=== PATIENT | female | born 1960 | race African-American/Black ===

== ENCOUNTER 2024-09-17 07:56 | Inpatient (IN) | payer OTHER ==
[~2024-09-17] VITALS: Ht 165.1 cm; Wt 95.7 kg
--- NOTE | 2024-09-17 08:17 | ED.PDOC ---
History of Present Illness HPI Comments 54F presents to the ER w/ prior MHx of HTN, Kidney Stones, DM, HLD,Asthma;SHx of Cholecystectomy, gastric Bypass and the c/c of ABD pain. EMS report that the pt had LUQ/Epigastric pain which radiated to antonia back for the past 2 days, worsening the pain making it on the scale of a 20/10 before EMS arrived. Pt states that she had Waba [place] last night before the pain worsened, w/ fever, and N/V. Pt was given 4 Zofran PO, and given Fentanyl IM all en route, w/ the current pain being a 5/10. Social Hx of Occasional alcohol use, but denies tobacco and substance use. Denies chills, /D, SOB, CP. No other associated symptoms, modifiers, recent injuries or sick contacts present at this time. Time Seen by MD: 08:00 Reviewed Notes: Nurses Notes, Screen Cutter And Trimmer Notes, Medications, Allergies Allergies: Coded Allergies: Penicillins (Verified Allergy, Unknown, 09/17/24) Information Source: Patient, Emergency Med Personnel Mode of Arrival: EMS Severity: Moderate Timing: Days Duration: Since onset, Days Prehospital treatment: Pain Meds (Fent/ 4 Zofran) Past Medical History PAST MEDICAL HISTORY: Asthma, DM, HTN, Kidney Stones Past Medical History (Other): HLD Surgical History: Cholecystectomy Surgical History (Other): Gastric Bypass BLOCKER METAL BASE History: No Pertinent BLOCKER METAL BASE History Family History Family History: Reviewed,noncontributory to illness, Unknown Social History Smoker: Non-Smoker Alcohol: Occasionally Drugs: Denies Drug Use Lives In: Home Constitutional: reports: fever; denies: chills, diaphoresis, fatigue, malaise, sweats, weakness, others EENTM: denies: blurred vision, double vision, ear bleeding, ear discharge, ear drainage, ear pain, ear ringing, eye pain, eye redness, hearing loss, mouth krista n, mouth swelling, nasal discharge, nose bleeding, nose congestion, nose pain, photophobia, tearing, throat pain, throat swelling, voice changes, others Respiratory: denies: cough, hemoptysis, orthopnea, SOB at rest, shortness of breath, SOB with excertion, stridor, wheezing, others Cardiovascular: denies: chest pain, dizzy spells, diaphoresis, Dyspnea on exertion, edema, irregular heart beat, left arm pain, lightheadedness, palpitations, PND, syncope, others Gastrointestinal: reports: abdominal pain, nausea, vomiting; denies: abdomen distended, blood streaked bowels, constipated, diarrhea, dysphagia, difficulty swallowing, hematemesis, melena, poor appetite, poor fluid intake, rectal bleeding, rectal pain, others Genitourinary: denies: abnormal vagina bleeding, burning, dyspareunia, dysuria, flank pain, frequency, hematuria, incontinence, pain, , vagina discharge, urgency, others Neurological: denies: dizziness, fainting, headache, left sided numbness, left sided weakness, numbness, paresthesia, pre-existing deficit, right sided numbness, right sided weakness, seizure, speech problems, tingling, tremors, weakness, others Musculoskeletal: denies: back pain, gout, joint pain, joint swelling, muscle pain, muscle stiffness, neck pain, others Integumetry: denies: bruises, change in color, change in hair/nails, dryness, laceration, lesions, lumps, rash, wounds, others Allergic/Immunocompromised: denies: Difficulty Healing, Frequent Infections, Hives, Itching, others Hematologic/Lymphatic: denies: anemia, blood clots, easy bleeding, easy bruising, swollen glands, others Endocrine: denies: excessive hunger, excessive sweating, excessive thirst, excessive urination, flushing, intolerance to cold, intolerance to heat, unexplained weight gain, unexplained weight loss, others Psychiatric: denies: anxiety, bipolar disorder, depression, hopeless, panic disorder, schizophrenia, sleepless, suicidal, others All Other Systems: Reviewed and Negative Physical Exam General Appearance: Moderate Distress HEENT: Normal ENT Inspection, Pharynx Normal, TMs Normal Neck: Full Range of Motion, Non-Tender, Normal, Normal Inspection Respiratory: Chest Non-Tender, Lungs Clear, No Accessory Muscle Use, No Respiratory Distress, Normal Breath Sounds Cardiovascular: No Edema, No JVD, No Murmur, No Gallop, Normal Peripheral Pulses, Regular Rate/Rhythm Breast Exam: Deferred Gastrointestinal: LUQ, No Organomegaly, No Pulsatile Mass, Normal Bowel Sounds, Soft, Tenderness Genitalia: Deferred Pelvic: Deferred Rectal: Deferred Extremities: No calf tenderness, Normal capillary refill, Normal inspection, Normal range of motion, Non-tender, No pedal edema Musculoskeletal : Apperance: Normal Neurologic: 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 Was a procedure done?: No EKG EKG : Pulse Rate (adult): 70 [place]: Normal Cardiac Rhythm: NSR Block: None Hypertrophy: LVH ST: Normal Differential Dx Considerations may include: Generalized weakness, abdominal pain, cholelithiasis, appendicitis X-Ray, Labs, Meds, VS Vital Signs Date Time Temp Pulse Resp B/P (MAP) Pulse Ox O2 Delivery O2 Flow Rate FiO2 09/17/24 08:45 98.9 64 16 134/68 (90) 98 98.9 09/17/24 08:45 64 16 98 Room Air* 0 21 09/17/24 08:32 70 09/17/24 08:24 70 09/17/24 08:00 97.3 80 25 186/96 (126) 98 97.3 Lab Test 09/17/24 08:45 Range/Units White Blood Count 7.5 4.4-10.8 10^3/uL Red Blood Count 4.57 4.0-5.20 10^6/uL Hemoglobin 13.3 12.2-16.2 g/dL Hematocrit 40.7 36.0-46.0 % Mean Corpuscular Volume 89.2 80.0-100.0 fL Mean Corpuscular Hemoglobin 29.2 28.0-32.0 pg Mean Corpuscular Hemoglobin Concent 32.8 32.0-36.0 g/dL Red Cell Distribution Width 17.1 H 11.8-14.3 % Platelet Count 162 140-450 10^3/uL Mean Platelet Volume 9.7 6.9-10.8 fL Neutrophils (%) (Auto) 80.9 H 37.0-80.0 % Lymphocytes (%) (Auto) 13.1 10.0-50.0 % Monocytes (%) (Auto) 4.9 0.0-12.0 % Eosinophils (%) (Auto) 0.3 0.0-7.0 % Basophils (%) (Auto) 0.8 0.0-2.0 % Neutrophils # (Auto) 6.1 1.6-8.6 10 ^3/uL Lymphocytes # (Auto) 1.0 0.4-5.4 10 ^3/uL Monocytes # (Auto) 0.4 0-1.3 10 ^3/uL Eosinophils # (Auto) 0 0-0.8 10 ^3/uL Basophils # (Auto) 0.1 0-0.2 10 ^3/uL Nucleated Red Blood Cells 0.2 % Sodium Level 140 136-145 mmol/L Potassium Level 3.8 3.5-5.1 mmol/L Chloride Level 101 98-107 mmol/L Carbon Dioxide Level 25 20-31 mmol/L Anion Gap 14 5-15 Blood Urea Nitrogen 24 H 9-23 mg/dL Creatinine 1.40 H 0.550-1.02 mg/dL Glomerular Filtration Rate Calc 44 >90 mL/min BUN/Creatinine Ratio 17.1 10.0-20.0 Serum Glucose 142 H 74-106 mg/dL Calcium Level 10.2 8.7-10.4 mg/dL Total Bilirubin 0.9 0.2-1.0 mg/dL Aspartate Amino Transferase (AST) 41 H 13-40 U/L Alanine Aminotransferase (ALT) 27 7-40 U/L Alkaline Phosphatase 107 46-116 U/L Total Protein 7.8 5.7-8.2 g/dL Albumin 4.8 3.2-4.8 g/dL Lipase 35 12-53 U/L IV Hep-Lock was established Despite the patient receiving fentanyl as well as morphine and Zofran, the patient continues to have abdominal pain The patient's CBC is within normal limits The chemistry panel shows a BUN of 24 and a creatinine of 1.4 At this time we are going to admit the patient to the hospitalist The patient will be evaluated for persistent and worsening abdominal pain The patient was admitted Images Reviewed?: Images reviewed and evaluated by me Time of 1ST Reevaluation: 08:30 Reevaluation 1ST: Unchanged Patient Education/Counseling: Diagnosis, Treatment, Prognosis Family Education/Counseling: No Family Present Departure 1 Departure Time of Disposition: 09:21 Impression: Primary Impression: Intractable abdominal pain Additional Impression: Abdominal pain of unknown etiology Disposition: ADMITTED INPATIENT Condition: Fair Critical Care Note Critical Care Time?: No Stability Stability form required: No I personally scribed for LM SHUKLA MD ([email or web address]) on 09/17/24 at 08:17. Electronically submitted by Kiran Pickens ([employer]). I personally scribed for LM SHUKLA MD ([email or web address]) on 09/17/24 at 08:32. Electronically submitted by Kiran Pickens ([employer]). LM SHUKLA MD September 17, 2024 08:17
--- NOTE | 2024-09-17 08:37 | ECG ---
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
[2024-09-17 08:45] VITALS: PULSE 64; RESP 16; O2SAT 98
[2024-09-17 09:02] LABS: Basophils # (auto) 0.1 10 ^3/uL (0-0.2); Basophils % (auto) 0.8 % (0.0-2.0); Eosinophils # (auto) 0 10 ^3/uL (0-0.8); Eosinophils % (auto) 0.3 % (0.0-7.0); Hematocrit 40.7 % (36.0-46.0); Hemoglobin 13.3 g/dL (12.2-16.2); Lymphocytes % (auto) 13.1 % (10.0-50.0); Mean Corpuscular Hemoglobin 29.2 pg (28.0-32.0); Mean Corpuscular Hgb Conc. 32.8 g/dL (32.0-36.0); Mean Corpuscular Volume 89.2 fL (80.0-100.0); Monocytes # (auto) 0.4 10 ^3/uL (0-1.3); Monocytes % (auto) 4.9 % (0.0-12.0); Neutrophils # (auto) 6.1 10 ^3/uL (1.6-8.6); Neutrophils % (auto) 80.9 % (37.0-80.0); Nucleated Red Blood Cells % 0.2 %; Platelet Count (auto) 162 10^3/uL (140-450); Red Blood Cells 4.57 10^6/uL (4.0-5.20); Red Cell Distribution Width 17.1 % (11.8-14.3); White Blood Cell 7.5 10^3/uL (4.4-10.8)
[2024-09-17 09:10] LABS: Alanine Aminotransferase 27 U/L (7-40); Alkaline Phosphatase 107 U/L (46-116); Anion Gap 14 (5-15); BUN/Creatinine Ratio 17.1 (10.0-20.0); Calcium 10.2 mg/dL (8.7-10.4); Carbon Dioxide 25 mmol/L (20-31); Chloride 101 mmol/L (98-107); Lipase 35 U/L (12-53); Potassium 3.8 mmol/L (3.5-5.1); Sodium 140 mmol/L (136-145); Total Protein 7.8 g/dL (5.7-8.2)
[2024-09-17 09:11] LABS: Albumin 4.8 g/dL (3.2-4.8); Aspartate Aminotransferase 41 U/L (13-40); Bilirubin, Total 0.9 mg/dL (0.2-1.0); Blood Urea Nitrogen 24 mg/dL (9-23); Glucose 142 mg/dL (74-106)
--- NOTE | 2024-09-17 09:19 | DVH ---
CT CT AB PEL WO CON-NO ORAL OR IV INDICATION: pain : 54 old Female pain EXAM DATE: 09/17/2024 08:48 AM COMPARISON: None RADIATION DOSE: CTDIvol: 17.11 mGy, DLP: 977.93 mGy*cm PROCEDURE: Helical CT images were obtained of the abdomen and pelvis without IV contrast Sagittal and coronal reconstructions are provided. ORAL CONTRAST: None. ADDITIONAL IMAGES / REFORMATS: None All C T scans at this medical facility are performed using dose modulation techniques as appropriate to a p erformed exam including the following: Automated exposure control was utilized; adjustment of the MA and/or KV according to patient size; and use of iterative reconstruction technique. FINDINGS: LUNG BASE: Normal. LIVER: Normal. GALLBLADDER AND BILIARY TREE: Cholecystectomy clips are seen. No intra- or extrahepatic biliary ducta l dilation. PANCREAS: Normal. SPLEEN: Normal. BOWEL: There is postsurgical change from gastric bypass. No small bowel dilatation is seen. ADRENALS: Normal. KIDNEYS AND URETER: Normal. BLADDER: Normal. REPRODUCTIVE ORGANS: Normal. LYMPH NODES:No lymphadenopathy. PERITONEUM: No ascites or free air. No other fluid collection. VESSELS: Scattered atherosclerotic calcifications are noted. RETROPERITONEUM: Normal. ABDOMINAL WALL: Normal. BONES: Scattered osseous degenerative changes are noted. IMPRESSION: No acute intraabdominal abnormality.
[2024-09-17] MEDS: SODIUM CHLORIDE 0.9% 1,000 ML IVB ONE (09:45)
[2024-09-17] MEDS: ONDANSETRON HCL 4 MG/2 ML VIAL IV ONE (09:46)
[2024-09-17] MEDS: MORPHINE SULFATE 4 MG/ML SYR/VIAL IV ONE (09:46)
[2024-09-17] MEDS: LACTATED RINGER'S 500 ML IV ONE (10:00)
[2024-09-17] MEDS ORDERED: MORPHINE SULFATE INJ 2 MG/ml SYRG IV PRN (10:00)
[2024-09-17] MEDS ORDERED: ACETAMINOPHEN 325 MG TAB PO PRN (10:00)
[2024-09-17] MEDS ORDERED: ONDANSETRON HCL 4 MG/2 ML VIAL IV PRN (10:00)
--- NOTE | 2024-09-17 10:46 | DVHHP2 ---
History of Present Illness History of Present Illness 54F presents to the ER w/ prior MHx of HTN, Kidney Stones, DM, HLD,Asthma;SHx of Cholecystectomy, gastric Bypass and the c/c of ABD pain. EMS report that the pt had LUQ/Epigastric pain which radiated to antonia back for the past 2 days, worsening the pain making it on the scale of a 2/10 before EMS arrived. Pt states that she had [place] last night before the pain worsened, w/ fever, and N/V. Pt was given 4 Zofran PO, and given Fentanyl IM all en route, w/ the current pain being a 5/10. Social Hx of Occasional alcohol use, but denies tobacco and substance use. Denies chills, /D, SOB, CP. No other associated symptoms, modifiers, recent injuries or sick contacts present at this time. ROS include epigastric pain, nausea and vomiting, loose stools followed by decreased rectal output, fever Review of Systems Review of Systems As HPI Allergies: Coded Allergies: Penicillins (Verified Allergy, Unknown, 09/17/24) Exam Vital Signs Vital Signs Date Time Temp Pulse Resp B/P (MAP) Pulse Ox O2 Delivery O2 Flow Rate FiO2 09/17/24 09:46 64 16 134/68 09/17/24 08:45 98.9 98 98.9 09/17/24 08:45 Room Air* 0 21 Exam GEN: Healthy appearing, well-developed, Mild distress HEENT: NC/AT; MMM. CV: RRR, no m/r/g. LUNGS: CTAB, no w/r/c. ABD: Tender to palpation epigastrium, absent/hypoactive bowel sounds EXT: skin Warm, well perfused. no rashes. No clubbing, cyanosis, or edema. NEURO: Ambulating with no limitations. No focal deficits. Labs/Xrays Labs Test 09/17/24 08:45 Range/Units White Blood Count 7.5 4.4-10.8 10^3/uL Red Blood Count 4.57 4.0-5.20 10^6/uL Hemoglobin 13.3 12.2-16.2 g/dL Hematocrit 40.7 36.0-46.0 % Mean Corpuscular Volume 89.2 80.0-100.0 fL Mean Corpuscular Hemoglobin 29.2 28.0-32.0 pg Mean Corpuscular Hemoglobin Concent 32.8 32.0-36.0 g/dL Red Cell Distribution Width 17.1 H 11.8-14.3 % Platelet Count 162 140-450 10^3/uL Mean Platelet Volume 9.7 6.9-10.8 fL Neutrophils (%) (Auto) 80.9 H 37.0-80.0 % Lymphocytes (%) (Auto) 13.1 10.0-50.0 % Monocytes (%) (Auto) 4.9 0.0-12.0 % Eosinophils (%) (Auto) 0.3 0.0-7.0 % Basophils (%) (Auto) 0.8 0.0-2.0 % Neutrophils # (Auto) 6.1 1.6-8.6 10 ^3/uL Lymphocytes # (Auto) 1.0 0.4-5.4 10 ^3/uL Monocytes # (Auto) 0.4 0-1.3 10 ^3/uL Eosinophils # (Auto) 0 0-0.8 10 ^3/uL Basophils # (Auto) 0.1 0-0.2 10 ^3/uL Nucleated Red Blood Cells 0.2 % Sodium Level 140 136-145 mmol/L Potassium Level 3.8 3.5-5.1 mmol/L Chloride Level 101 98-107 mmol/L Carbon Dioxide Level 25 20-31 mmol/L Anion Gap 14 5-15 Blood Urea Nitrogen 24 H 9-23 mg/dL Creatinine 1.40 H 0.550-1.02 mg/dL Glomerular Filtration Rate Calc 44 >90 mL/min BUN/Creatinine Ratio 17.1 10.0-20.0 Serum Glucose 142 H 74-106 mg/dL Calcium Level 10.2 8.7-10.4 mg/dL Total Bilirubin 0.9 0.2-1.0 mg/dL Aspartate Amino Transferase (AST) 41 H 13-40 U/L Alanine Aminotransferase (ALT) 27 7-40 U/L Alkaline Phosphatase 107 46-116 U/L Total Protein 7.8 5.7-8.2 g/dL Albumin 4.8 3.2-4.8 g/dL Lipase 35 12-53 U/L Assessment/Plan Assessment/Plan Intractable abdominal pain, acute Intractable p.o. intolerance Intractable nausea and vomiting Acute gastroenteritis, infectious etiology likely Peptic ulcer disease likely Intravascular volume depletion RAGHAV due to VMN Acute abdomen ruled out History hypertension history kidney stones History diabetes History of hyperlipidemia History asthma History cholecystectomy History of gastric bypass Clear liquid diet, NPO otherwise P.r.n. antiemetics Zofran IV 1st line IV antibiotics ceftriaxone Flagyl Pain control PRN DVT prophylaxis GI prophylaxis IV PPI once daily IV fluids, small bolus then maintenance with D5 half-normal UA Diet NPO/clear liquid diet DVT prophylaxis-Lovenox GI prophylaxis Protonix Med surge Full code Plan discussed with: Patient Date of Service: September 17, 2024 Billing Provider: GITA BELLO MD Common Visit Codes: [id number] INP/OBS CARE (HIGH) Secondary Visit Codes: [id number] CARE PLAN 30 MINUTES GITA BELLO MD September 17, 2024 10:46
[2024-09-17 11:29] VITALS: PULSE 78; RESP 18; O2SAT 98
[2024-09-17] MEDS: cefTRIAXone 1GM/50ML D5W 50 ML IV ONE (15:38)
[2024-09-17] MEDS: ENOXAPARIN SOD 40 MG/0.4 ML SYRINGE SC SCH (15:39)
[2024-09-17 16:30] VITALS: BP 146/79; PULSE 74; RESP 18; TEMP 97.8; O2SAT 99
[2024-09-17] MEDS: metroNIDAZOLE 500MG/100ML 100 ML IV SCH (17:00)
[2024-09-17] MEDS: D5W/SOD CHL 0.45% 1,000 ML IV ONE (17:23)
[2024-09-17 21:00] VITALS: BP 134/65; PULSE 69; RESP 18; TEMP 98.2; O2SAT 94
[2024-09-18] VITALS (7 sets, daily range): BP systolic 129–158; BP diastolic 61–84; PULSE 64–73; RESP 18; TEMP 96.5–98.4; O2SAT 96–100
[2024-09-18] MEDS: metroNIDAZOLE 500MG/100ML 100 ML IV SCH (00:12)
[2024-09-18] MEDS: HYDROcodone-ACET 5/325MG TAB PO PRN (00:12)
[2024-09-18 06:34] LABS: Basophils # (auto) 0 10 ^3/uL (0-0.2); Basophils % (auto) 0.1 % (0.0-2.0); Eosinophils # (auto) 0 10 ^3/uL (0-0.8); Eosinophils % (auto) 0.7 % (0.0-7.0); Hematocrit 33.8 % (36.0-46.0); Lymphocytes # (auto) 1.4 10 ^3/uL (0.4-5.4); Lymphocytes % (auto) 25.7 % (10.0-50.0); Mean Corpuscular Hemoglobin 29.5 pg (28.0-32.0); Mean Corpuscular Hgb Conc. 32.6 g/dL (32.0-36.0); Mean Corpuscular Volume 90.4 fL (80.0-100.0); Monocytes # (auto) 0.5 10 ^3/uL (0-1.3); Monocytes % (auto) 8.6 % (0.0-12.0); Neutrophils # (auto) 3.6 10 ^3/uL (1.6-8.6); Neutrophils % (auto) 64.9 % (37.0-80.0); Nucleated Red Blood Cells % 0.1 %; Platelet Count (auto) 128 10^3/uL (140-450); Red Blood Cells 3.73 10^6/uL (4.0-5.20); Red Cell Distribution Width 16.9 % (11.8-14.3); White Blood Cell 5.6 10^3/uL (4.4-10.8)
[2024-09-18 06:54] LABS: Alanine Aminotransferase 17 U/L (7-40); Albumin 3.5 g/dL (3.2-4.8); Alkaline Phosphatase 73 U/L (46-116); Anion Gap 10 (5-15); Aspartate Aminotransferase 28 U/L (13-40); BUN/Creatinine Ratio 13.3 (10.0-20.0); Bilirubin, Total 0.7 mg/dL (0.2-1.0); Blood Urea Nitrogen 19 mg/dL (9-23); Carbon Dioxide 24 mmol/L (20-31); Chloride 106 mmol/L (98-107); Sodium 140 mmol/L (136-145); Total Protein 5.9 g/dL (5.7-8.2)
[2024-09-18 06:55] LABS: Glucose 111 mg/dL (74-106); Potassium 3.2 mmol/L (3.5-5.1)
[2024-09-18] MEDS: cefTRIAXone 1GM/50ML D5W 50 ML IV SCH (08:44)
--- NOTE | 2024-09-18 10:13 | DVHPN2 ---
Progress Note Date Seen: September 18, 2024 Medical Necessity Reason Pt with a Central, PICC or Fol: No Subjective Patient reports: No new complaints Review of Systems: HEENT:Normal, CVS:Normal, RESPIRATORY:Normal, GI:Normal, :Normal, MSK:Normal, NEURO:Normal Objective vital signs Vital Sign Date Time Temp Pulse Resp B/P (MAP) Pulse Ox O2 Delivery O2 Flow Rate FiO2 09/18/24 09:27 97.9 67 18 149/84 (105) 100 97.9 09/18/24 08:00 Room Air* 0 21 Total Intake and Output 09/17/24 09/17/24 09/18/24 15:00 23:00 07:00 Intake Total 150 ml 100 ml Balance 150 ml 100 ml medications Current Medications Medications Dose Ordered Sig/Claudine Route Start Time Stop Time Status Last Admin Dose Admin Acetaminophen/ Hydrocodone Bitart 1 tab Q4HP PRN PO 09/17/24 10:00 09/18/24 00:12 1 TAB Ondansetron HCl 4 mg Q4HP PRN IV 09/17/24 10:00 Enoxaparin Sodium 40 mg DAILY SC 09/17/24 10:00 09/18/24 08:52 40 MG Acetaminophen 650 mg Q6HP PRN PO 09/17/24 10:00 Ceftriaxone Sodium 50 ml @ 100 mls/hr DAILY@09 IV 09/18/24 09:00 09/18/24 08:44 100 MLS/HR Morphine Sulfate 2 mg Q6HP PRN IV 09/17/24 10:00 Metronidazole 100 ml @ 100 mls/hr Q8H IV 09/18/24 01:00 09/18/24 09:59 100 MLS/HR Examination: GENERAL:Normal, HEENT:Normal, NECK:Normal, LUNGS:Normal, CVS:Normal, ABDOMEN:Normal, MSK:Normal, SKIN:Normal, NEURO:Normal, :Normal laboratory and microbiology Laboratory Tests 09/18/24 05:45 Test 09/18/24 05:45 Range/Units Serum Glucose 111 H 74-106 mg/dL Problem List/Assessment/Plan Problem List/Assessment/Plan #1 abd pain ? gastritis: ppi #2 s/p gastric bypass #3 dm: ssi #4 htn #5 obesity #6 ? ckd stage 3 #7 hyperlipidemia #8 thrombocytopenia: monitor #9 chest pain: check trop advance care planning- full code- time spent 19 mins unstable for transfer Plan discussed with: Patient Date of Service: September 18, 2024 Billing Provider: PAIGE SCOTT MD Common Visit Codes: [id number] INP/OBS CARE(HIGH) Secondary Visit Codes: [id number] CARE PLAN 30 MINUTES PAIGE SCOTT MD September 18, 2024 10:13
[2024-09-18] MEDS ORDERED: DEXTROSE (50%) 50ML SYRG IV PRN (10:15)
[2024-09-18 11:21] LABS: Urine Bacteria None Seen /hpf (None Seen)
[2024-09-18] MEDS: PANTOPRAZOLE 40 MG/10 ML VIAL INJ IV ONE (11:23)
[2024-09-18] MEDS: POTASSIUM CHL 20 Meq TABLET PO ONE (11:23)
[2024-09-18] MEDS: SODIUM CHLORIDE 0.9% 1,000 ML IV SCH (11:29)
[2024-09-18 11:30] LABS: Urine Blood Negative /uL (Negative); Urine Clarity Clear (Clear); Urine Color Colorless (Yellow); Urine Protein, UAD Negative (Negative); Urine Specific Gravity 1.007 (1.001-1.035); Urine Squamous Epithelial Cell FEW /hpf (<5); Urine Urobilinogen Normal (Negative); Urine WBC 1 /HPF (0-5)
--- NOTE | 2024-09-18 11:53 | DVH ---
EXAM: XY CHEST PORTABLE Indication: HTN Technique: Single frontal view of the chest was obtained Comparison: None FINDINGS: Lines and Tubes: None Lungs: No focal consolidation. Pleura: No effusion. No pneumothorax. Cardiomediastinal contours: Unremarkable Bones: No acute osseous abnormality. IMPRESSION: No acute cardiopulmonary disease.
[2024-09-18] MEDS: InsuLIN REG 1unit/0.01ml Soln (100units/ml) SC SCH (11:57)
[2024-09-18] MEDS: ACCU-CHEK COMFORT CURVE STRIP VI SCH (11:57)
[2024-09-18] MEDS ORDERED: ATEN-60 PO (16:19)
[2024-09-18] MEDS ORDERED: MONT-8 PO (16:19)
[2024-09-18] MEDS ORDERED: LOSA-534 PO (16:19)
[2024-09-18] MEDS ORDERED: ALLO300T2 PO (16:19)
[2024-09-18] MEDS ORDERED: PANT40TA2 PO (16:19)
[2024-09-18] MEDS ORDERED: PRED10TA PO (16:19)
[2024-09-18] MEDS ORDERED: COLCPOW2 PO (16:19)
[2024-09-18] MEDS ORDERED: LATA0.008 EACHEYE (16:19)
[2024-09-18] MEDS ORDERED: CICL80AE2 IN (16:19)
[2024-09-18] MEDS ORDERED: PIOG1TAB51 PO (16:19)
[2024-09-18] MEDS ORDERED: NYSTOIN4 TOP (16:19)
[2024-09-18] MEDS ORDERED: ROSU10TA16 PO (16:19)
[2024-09-19] VITALS (7 sets, daily range): BP systolic 139–163; BP diastolic 68–80; PULSE 59–83; RESP 18–19; TEMP 97.7–98.7; O2SAT 97–100
[2024-09-19 06:47] LABS: Chloride 106 mmol/L (98-107); Potassium 3.5 mmol/L (3.5-5.1); Sodium 141 mmol/L (136-145)
[2024-09-19 06:48] LABS: Anion Gap 9 (5-15); Calcium 9.4 mg/dL (8.7-10.4); Carbon Dioxide 26 mmol/L (20-31)
[2024-09-19 06:51] LABS: Basophils # (auto) 0 10 ^3/uL (0-0.2); Basophils % (auto) 0.7 % (0.0-2.0); Eosinophils # (auto) 0.1 10 ^3/uL (0-0.8); Eosinophils % (auto) 1.2 % (0.0-7.0); Hematocrit 36.6 % (36.0-46.0); Hemoglobin 11.8 g/dL (12.2-16.2); Lymphocytes # (auto) 1.6 10 ^3/uL (0.4-5.4); Mean Corpuscular Hemoglobin 29.5 pg (28.0-32.0); Mean Corpuscular Hgb Conc. 32.2 g/dL (32.0-36.0); Mean Corpuscular Volume 91.6 fL (80.0-100.0); Monocytes # (auto) 0.5 10 ^3/uL (0-1.3); Monocytes % (auto) 9.2 % (0.0-12.0); Neutrophils # (auto) 2.9 10 ^3/uL (1.6-8.6); Neutrophils % (auto) 56.9 % (37.0-80.0); Nucleated Red Blood Cells % 0.2 %; Platelet Count (auto) 130 10^3/uL (140-450); Red Cell Distribution Width 16.8 % (11.8-14.3); White Blood Cell 5.1 10^3/uL (4.4-10.8)
[2024-09-19 06:53] LABS: BUN/Creatinine Ratio 12.5 (10.0-20.0); Blood Urea Nitrogen 16 mg/dL (9-23); Glucose 96 mg/dL (74-106)
[2024-09-19] MEDS: PANTOPRAZOLE 40 MG/10 ML VIAL INJ IV SCH (10:00)
--- NOTE | 2024-09-19 10:04 | DVHDS2 ---
Discharge Summary Date of Admission September 17, 2024 at 09:49 Date of Discharge: September 19, 2024 Labs/Diagnostic Data: Laboratory Results Test 09/19/24 06:09 09/19/24 05:53 09/18/24 13:00 09/18/24 11:14 POC Glucose 86 mg/dl (70-106) White Blood Count 5.1 10^3/uL (4.4-10.8) Red Blood Count 4.00 10^6/uL (4.0-5.20) Hemoglobin 11.8 g/dL (12.2-16.2) Hematocrit 36.6 % (36.0-46.0) Mean Corpuscular Volume 91.6 fL (80.0-100.0) Mean Corpuscular Hemoglobin 29.5 pg (28.0-32.0) Mean Corpuscular Hemoglobin Concent 32.2 g/dL (32.0-36.0) Red Cell Distribution Width 16.8 % (11.8-14.3) Platelet Count 130 10^3/uL (140-450) Mean Platelet Volume 9.5 fL (6.9-10.8) Neutrophils (%) (Auto) 56.9 % (37.0-80.0) Lymphocytes (%) (Auto) 32.0 % (10.0-50.0) Monocytes (%) (Auto) 9.2 % (0.0-12.0) Eosinophils (%) (Auto) 1.2 % (0.0-7.0) Basophils (%) (Auto) 0.7 % (0.0-2.0) Neutrophils # (Auto) 2.9 10 ^3/uL (1.6-8.6) Lymphocytes # (Auto) 1.6 10 ^3/uL (0.4-5.4) Monocytes # (Auto) 0.5 10 ^3/uL (0-1.3) Eosinophils # (Auto) 0.1 10 ^3/uL (0-0.8) Basophils # (Auto) 0 10 ^3/uL (0-0.2) Nucleated Red Blood Cells 0.2 % Sodium Level 141 mmol/L (136-145) Potassium Level 3.5 mmol/L (3.5-5.1) Chloride Level 106 mmol/L (98-107) Carbon Dioxide Level 26 mmol/L (20-31) Anion Gap 9 (5-15) Blood Urea Nitrogen 16 mg/dL (9-23) Creatinine 1.28 mg/dL (0.550-1.02) Glomerular Filtration Rate Calc 46 mL/min (>90) BUN/Creatinine Ratio 12.5 (10.0-20.0) Serum Glucose 96 mg/dL (74-106) Calcium Level 9.4 mg/dL (8.7-10.4) Troponin I High Sensitivity 13 ng/L (</=34) Urine Color Colorless (Yellow) Urine Clarity Clear (Clear) Urine pH 5.0 (5.0-9.0) Urine Specific [place] 1.007 (1.001-1.035) Urine Protein Negative (Negative) Urine Ketones Negative (Negative) Urine Blood Negative /uL (Negative) Urine Nitrite Negative (Negative) Urine Bilirubin Negative (Negative) Urine Urobilinogen Normal mg/dL (Negative) Urine Leukocyte Esterase Negative /uL (Negative) Urine RBC 1 /hpf (0 - 4) Urine Microscopic WBC 1 /HPF (0-5) Urine Squamous Epithelial Cells Few /hpf (<5) Urine Bacteria None seen /hpf (None Seen) Urine Glucose Trace mg/dL (Normal) Test 09/18/24 05:45 09/17/24 08:45 Total Bilirubin 0.7 mg/dL (0.2-1.0) Aspartate Amino Transferase (AST) 28 U/L (13-40) Alanine Aminotransferase (ALT) 17 U/L (7-40) Alkaline Phosphatase 73 U/L (46-116) Total Protein 5.9 g/dL (5.7-8.2) Albumin 3.5 g/dL (3.2-4.8) Lipase 35 U/L (12-53) Other Laboratory Tests 09/19/24 05:53 Brief Hx & Hospital Course: SEE DICTATED NOTE Condition at Discharge: Fair Final Diagnosis/Problems List ABD PAIN Discharge Disposition: Home Discharge Instruct/Medications Diet: Consistent carbohydrate, Cardiac 2g Na,low cholest Activity: No Restrictions, As Tolerated Follow Up/Referral: FU WITH JOHN Medications: RESUME HOME MEDS Discharge Statement: "Patient was advised to return to the ER or call 911 if any headaches, dizziness, shortness of breath, chest pain, abdominal pain, bleeding, fevers, or worsening of medical condition. Patient was counseled about treatment plan, medications, possible side effects, patientverbalized understanding. All questions were answered to the best of my ability. This discharge took greater then 30 minutes in planning, reviewing documentation, counseling the patient, and discussing with other team members." ASSESSMENT ASSESSMENT Assessment ABD PAIN Date of Service: September 19, 2024 Billing Provider: PAIGE SCOTT MD Common Visit Codes: 23391-GNF/OBS DISCH DAY >30min PAIGE SCOTT MD September 19, 2024 10:04
--- NOTE | 2024-09-19 10:14 | DVHDS ---
DATE OF DISCHARGE: 09/19/2024 HISTORY OF PRESENT ILLNESS: The patient is a 64-year-old lady who came with a history of abdominal pain, nausea, and vomiting and has a history of hypertension, diabetes, asthma, hyperlipidemia, and previous gastric bypass. The patient also had diarrhea. HOSPITAL COURSE: The patient had a lipase that was within normal limits. The patient had a CT of the abdomen and pelvis that showed no acute abnormality. The patient currently is doing well and is tolerating her oral diet. She will be discharged home to resume her home medications and follow up with her primary in 1 week. FINAL DIAGNOSES: * Abdominal pain, with likely gastroenteritis. * History of gastric bypass surgery. * Diabetes mellitus. * Hypertension. * Obesity. * Likely CKD stage 3. * Hyperlipidemia. * Thrombocytopenia. Time spent on discharge planning, review of plan with the patient and nursing was 38 minutes. MD SHU Gomez/KIRILL TID: [id number] RECEIPT: [id number]
== END 2024-09-19 16:40 | disposition home or self-care (01) | DRG 371 ==
LOC: ER 07:56 → EDBD 07:56 → OVERFLOW 09:49 → CENTRAL 16:06
PROVIDERS: ADMIT Internal Medicine; ATTEND Internal Medicine
DX: A04.9 Bacterial intestinal infection, unspecified (principal); N17.0 Acute kidney failure with tubular necrosis; E86.9 Volume depletion, unspecified; E78.5 Hyperlipidemia, unspecified; N18.30 Chronic kidney disease, stage 3 unspecified; E11.22 Type 2 diabetes mellitus with diabetic chronic kidney disease; D69.6 Thrombocytopenia, unspecified; I12.9 Hypertensive chronic kidney disease with stage 1 through stage 4 chronic kidney disease, or unspecified chronic kidney disease; E66.9 Obesity, unspecified; Z98.84 Bariatric surgery status; Z90.49 Acquired absence of other specified parts of digestive tract; Z79.899 Other long term (current) drug therapy; Z88.0 Allergy status to penicillin
CPT/HCPCS: 36415; 71045; 74176; 80048; 80053; 81001; 82962; 83690; 84484; 85025; 93005; 96361; 96374; G0378; J1815; J2405; J2470; J3490